=== PATIENT | male | born 1995 ===

== ENCOUNTER 2020-12-12 19:27 | Emergency (ER) | payer SELFPAY ==
[~2020-12-12] VITALS: Ht 162.6 cm; Wt 81.8 kg
[2020-12-12 19:29] VITALS: BP 119/65
== END 2020-12-12 20:20 | disposition left against medical advice (07) ==
LOC: M ED 19:27
DX: Z53.21 Procedure and treatment not carried out due to patient leaving prior to being seen by health care provider (principal)